=== PATIENT | male | born 1955 | race Caucasian/White ===

== ENCOUNTER 2016-05-07 09:06 | Inpatient (IN) | payer BC ==
--- NOTE | 2016-05-07 11:00 | PDGENHP ---
History and Physical - Chief Complaint preop CABG - History of Present Illness 60 yo physically active male with severe multivessel CAD transferred from [facility] for surgical revascularization. Recent retiree relocating to [place] from [place], [place]. Noted on annual physical to have an abnormal EKG (showing anteroseptal QWs with biphasic TWs in V3-V4) and referred for cardiac evaluation. Stress echo positive for anterior wall ischemia, exercise induced PVCs/NSVT, normal LV size, LVEF 55% and no significant valvular dysfx. Cardiac cath notable for severe LM disease and a subtotally occluded and collateralized LAD. Procedure complicated by catheter-induced ventricular fibrillation, requiring defibrillation. Medically stabilized and transferred for urgent CABG. No interim CP, dyspnea, presyncope, palpitations or hemodynamic instability. Is finishing up a 2 wk course of Abx for prostatitis and has not had any irritative urinary symptoms for > 72hrs. History Information - Allergies/Home Medication List Allergies/Adverse Reactions: ciprofloxacin HCl [From Cipro] Allergy (Mild, Verified 05/07/16 10:59) Other-Enter Comments Home Medications: Amlodipine Besylate [Norvasc] 5 mg PO DAILY 05/07/16 [Last Taken 05/07/16] Aspirin EC [Aspirin EC 81 mg (*)] 81 mg PO DAILY 05/07/16 [Last Taken 05/07/16] Atorvastatin Calcium [Lipitor 10 mg (*)] 10 mg PO HS 05/07/16 [Last Taken ] Finasteride [Proscar 5 MG (*)] 5 mg PO HS 05/07/16 [Last Taken 05/06/16] Fluticasone Nasal [Flonase Nasal Frostproof (RX)] 2 sprays EACHNARE DAILY 05/07/16 [ Last Taken 05/07/16] LORazepam [Ativan (*)] 0.5 mg PO BID PRN 05/07/16 [Last Taken Unknown] LORazepam [Ativan (*)] 1 mg PO HS PRN 05/07/16 [Last Taken Unknown] Nitroglycerin [Nitrostat 0.4 mg (*)] 0.4 mg SL Q5M PRN 05/07/16 [Last Taken Unknown] Sildenafil Citrate [Viagra] 100 mg PO PRN PRN 05/07/16 [Last Taken 04/07/16] Sulfamethox/Tmp 800/160 mg [Bactrim Ds] 1 tab PO BID 05/07/16 [Last Taken ] Tamsulosin HCl [Flomax 0.4 MG (*)] 0.4 mg PO BID 05/07/16 [Last Taken 05/07/16] Testosterone Cypionate 200 mg IM Q14D 05/07/16 [Last Taken 04/16/16] I have personally reviewed and updated: family history, medical history, social history, surgical history - Past Medical History arthritis (rt shoulder, easily dislocated), cataracts (bilateral, left worse than right; awaiting staged surgery), hyperlipidemia, recurrent UTI (prostatitis , currently finishing up a course of Abx for a flare; followed by urologist [facility]) Additional medical history: AGUSTIN on CPAP. BPH w LUTS of straining and nocturia x 3. Carpal tunnel syndrome, left wrist. Detached retina x 2 w scleral buckle , left eye - Surgical History Reports: hernia repair (umbilical x 2, 2012) Additional surgical history: right rotator cuff repair for recurrent dislocation. TURP April 2014; laser touch-up Nov 2014. Left carpal tunnel release 2013 - Family History Positive for: CAD ([place] age 75) - Social History Smoking Status: Former smoker (1ppd x 15yrs, quitting 1971) Alcohol Use: Other (3 drinks/week) Additional social history: (Yudith), no children;. 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 [employer] and opted to retire Review of Systems Constitutional: Reports: no symptoms EENMT: Reports: other (cataract surgery scheduled for 05/14/16) Cardiac: Reports: no symptoms Respiratory: Reports: no symptoms Gastrointestinal: Reports: no symptoms Genitourinary: Reports: other (urgency, dysuria and flank pain resolved) Muscolosketal: Reports: no symptoms Skin: Reports: no symptoms Hematologic/Lymphatic: Reports: no symptoms Physical Exam Constitutional: no apparent distress, appears nourished Eyes: anicteric sclera, other (PER) Ears, Nose, Mouth, Throat: moist mucous membranes, other (good dentition) Cardiovascular: regular rate and rhythym Peripheral Pulses: 3+: femoral (R), femoral (L), dorsalis-pedis (R), dorsalis- pedis (L) Respiratory: no respiratory distress, clear to auscultation Gastrointestinal: soft, non-tender abdomen Skin: warm, no rashes or abrasions Musculoskeletal: full muscle strength Lab Data & Imaging Review 04/20/16 Na 139, K 4.3, Cl 105, CO2 25, Glc 103 BUN 12, Cr 0.8, AST 27, ALT 35 TC 124, TG 87, HDL 35, LDL 72 Hgb A1c 5.4%, testosterone 1320 WBC 6, Hgb 16.8, HCT 48.6, Plt 159 Visualized and Interpreted Chest x-ray results: No Chest X-Ray results: no infiltrate Visualized and Interpreted imaging results: No Interpretation: cath, echo, CXR and carotid US on discs and to be downloaded into [employer]. Visualized and Interpreted EKG results: No Assessment & Plan Assessment: CAD, multiple vessel (Acute) AGSUTIN on CPAP (Chronic) Dyslipidemia Treated prostatitis Plan: Resume cardioprotective meds. NPO after MN. CABG4, tentatively scheduled for 05/07/16 @ 1pm. Likely all arterial revascularization with BIMAs and radial artery. Dr Lieberman to review imaging and consent appropriately.
[2016-05-07 13:45] LABS: HEMOGLOBIN A1C 5.5 % (4.0-6.0)
[2016-05-07] MEDS ORDERED: NITROGLYCERIN 0.4 MG BTL SL PRN (17:25)
[2016-05-07] MEDS ORDERED: HEPARIN 5,000 UNIT/0.5 ML SYR SC SCH (21:00)
[2016-05-07] MEDS ORDERED: CHLORHEXIDINE GLUC HIBICLENS 118 ML BTL TP SCH (21:00)
[2016-05-07] MEDS ORDERED: TEMAZEPAM 15 MG CAP PO PRN (21:00)
[2016-05-07] MEDS: SULFAMETHOX/TMP 800/160 MG 1 TAB PO SCH (21:04)
[2016-05-07] MEDS: MUPIROCIN 2% 22 GM OINT NS SCH (21:04)
[2016-05-07] MEDS: SENNOSIDES/DOCUSATE SODIUM TAB PO SCH (21:04)
[2016-05-07] MEDS: TAMSULOSIN HCL 0.4 MG CAP PO SCH (21:04)
[2016-05-07] MEDS: FINASTERIDE 5 MG TAB PO SCH (21:04)
[2016-05-07] MEDS: HEPARIN 5,000 UNIT/0.5 ML SYR SC SCH (21:05)
[2016-05-08 04:38] LABS: HEMATOCRIT 46.4 % (40.0-51.0); HEMOGLOBIN 15.9 g/dL (13.7-17.5); MEAN CELL HEMOGLOBIN 31.7 pg (27.9-34.1); MEAN CELL HEMOGLOBIN CONCENTR. 34.3 g/dL (32.4-36.7); MEAN CELL VOLUME 92.6 fL (81.5-99.8); RED BLOOD CELL COUNT 5.01 10^6/uL (4.40-6.38); RED CELL DISTRIBUTION WIDTH 13.1 % (11.5-15.2)
[2016-05-08 05:05] LABS: ANION GAP 10 mEq/L (8-16); CALCIUM 8.8 mg/dL (8.5-10.4); CARBON DIOXIDE 23 mEq/l (22-31); CHLORIDE 108 mEq/L (97-110); CREATININE 1.1 mg/dL (0.7-1.3); GLOMERULAR FILTRATION RATE > 60; GLUCOSE 88 mg/dL (70-100); POTASSIUM 4.4 mEq/L (3.5-5.2); SODIUM 141 mEq/L (134-144)
[2016-05-08] MEDS: HEPARIN 5,000 UNIT/0.5 ML SYR SC SCH ×3 (07:14→21:23)
[2016-05-08] MEDS ORDERED: ALBUMIN 5% 250 ML BOTTLE IV ONE (07:34)
[2016-05-08] MEDS ORDERED: PROTAMINE SULFATE 50 MG/5 ML VIAL IVP ONE (07:34)
[2016-05-08] MEDS ORDERED: CITRATE DEXTROSE SOLN 500 ML BAG ONE (07:35)
[2016-05-08] MEDS ORDERED: DOPamine/DEXTROSE/250 ML BAG IV ONE (07:35)
[2016-05-08] MEDS ORDERED: POTASSIUM Cl (KCl) 20 MEQ/50 ML BAG IV ONE (07:35)
[2016-05-08] MEDS ORDERED: AMINOCAPROIC ACID 5 GM/20 ML VIAL ONE (07:35)
[2016-05-08] MEDS ORDERED: MILRINONE/DEXTROSE/100 ML BAG IV ONE (07:35)
[2016-05-08] MEDS ORDERED: CALCIUM CHLORIDE 1 GM/10 ML INJ ONE (07:35)
[2016-05-08] MEDS ORDERED: LIDOCAINE 2% 100 MG/5 ML SYR ONE (07:35)
[2016-05-08] MEDS ORDERED: niCARdipine/NACL/200 ML BAG IV ONE (07:35)
[2016-05-08] MEDS ORDERED: NA BICARBONATE 50 MEQ/50 ML VIAL ONE (07:35)
[2016-05-08] MEDS ORDERED: ceFAZolin 1 GM VIAL ONE (07:36)
[2016-05-08] MEDS ORDERED: AMIODARONE HCL 150 MG/3 ML VIAL ONE (07:36)
[2016-05-08] MEDS ORDERED: HEPARIN 10,000 UNIT/10 ML MDV ONE (07:36)
[2016-05-08] MEDS ORDERED: methylPREDNISolone SOD SUCC 1 GM/8 ML VIAL ONE (07:36)
[2016-05-08] MEDS ORDERED: ADENOSINE 6 MG/2 ML VIAL ONE (07:36)
[2016-05-08] MEDS ORDERED: MAGNESIUM SULFATE 1 GM/2 ML VIAL ONE (07:36)
--- NOTE | 2016-05-08 08:56 | CPEKG ---
Heart Rate: 57 RR Interval: 1053 P-R Interval: 180 QRSD Interval: 92 QT Interval: 432 QTC Interval: 421 P Grant: 55 QRS Grant: -44 T Wave Grant: 82 EKG Severity - ABNORMAL ECG - EKG Impression: SINUS RHYTHM EKG Impression: LEFT ANTERIOR FASCICULAR BLOCK EKG Impression: PROBABLE ANTEROSEPTAL INFARCT, OLD EKG Impression: BORDERLINE T WAVE ABNORMALITIES Electronically Signed By: Myron Young 09-May-2016 18:34:01
[2016-05-08] MEDS: MUPIROCIN 2% 22 GM OINT NS SCH ×2 (10:10→19:48)
[2016-05-08] MEDS: SENNOSIDES/DOCUSATE SODIUM TAB PO SCH ×2 (10:11→21:09)
[2016-05-08] MEDS: SULFAMETHOX/TMP 800/160 MG 1 TAB PO SCH (10:11)
[2016-05-08] MEDS: TAMSULOSIN HCL 0.4 MG CAP PO SCH (10:11)
[2016-05-08] MEDS ORDERED: NS 1,000 ML IV ONE (11:00)
[2016-05-08] MEDS ORDERED: LIDOCAINE 1% 5 ML SDV ID PRN (11:00)
[2016-05-08] MEDS ORDERED: PHENYLEPHRINE HCL 50 MG in NS 250 ML IV ONE (11:00)
[2016-05-08] MEDS ORDERED: VERAPAMIL 5 MG, NITROGLYCERIN 2.5 MG, HEPARIN 500 UNIT, SODIUM BICARBONATE 0.2 MEQ in L... MISC ONE (11:00)
[2016-05-08] MEDS ORDERED: SODIUM BICARBONATE 20 MEQ, LIDOCAINE 1% 10 ML in NORMOSOL-R 1,000 ML MISC ONE (11:00)
[2016-05-08] MEDS ORDERED: AMINOCAPROIC ACID 5 GM/20 ML VIAL IV ONE (11:00)
[2016-05-08] MEDS ORDERED: MANNITOL 25% 12.5 GM/50 ML VIAL IV ONE (11:00)
[2016-05-08] MEDS ORDERED: INSULIN REGULAR HUMAN 100 UNIT in NS 100 ML IV ONE (11:00)
[2016-05-08] MEDS ORDERED: ceFAZolin 2 GM/DEXTROSE 100 ML IV ONE (11:00)
[2016-05-08] MEDS ORDERED: niCARdipine/NACL 200 ML IV SCH (11:00)
[2016-05-08] MEDS ORDERED: NOREPINEPHRINE BITARTRATE 16 MG in NS 250 ML IV ONE (11:00)
[2016-05-08] MEDS ORDERED: CITRATE DEXTROSE SOLN 500 ML BAG MISC ONE (11:00)
[2016-05-08] MEDS ORDERED: PAPAVERINE HCL 60 MG/2 ML SDV ONE (12:08)
[2016-05-08] MEDS ORDERED: SKIN ADHESIVE (DERMABOND) 1 EACH TP ONE (12:08)
[2016-05-08] MEDS ORDERED: VERAPAMIL 5 MG/2 ML VIAL ONE (12:08)
[2016-05-08] MEDS ORDERED: PROPOFOL/EMULSION 500 MG/50 ML BOTTLE IV ONE (12:11)
[2016-05-08] MEDS ORDERED: MIDAZOLAM 2 MG/2 ML VIAL ONE ×2 (12:54→12:59)
[2016-05-08] MEDS ORDERED: fentaNYL 250 MCG/5 ML INJ ONE ×2 (13:00)
[2016-05-08] MEDS ORDERED: MINERAL OIL 10 ML VIAL TP ONE (15:58)
[2016-05-08] MEDS ORDERED: MAGNESIUM SULF 2 GM/WATER 50 ML BAG IV ONE (17:07)
[2016-05-08] MEDS ORDERED: HYDROmorphONE/DILAUDID 2 MG/ML INJ ONE (17:42)
[2016-05-08] MEDS ORDERED: ALBUMIN 5% 250 ML IV PRN (18:00)
[2016-05-08] MEDS ORDERED: LACTULOSE 20 GM/30 ML UDCUP PO PRN (18:00)
[2016-05-08] MEDS ORDERED: SODIUM CL NASAL 45 ML BTL EACHNARE PRN (18:00)
[2016-05-08] MEDS ORDERED: D50W 25 GM/50 ML SYR IVP PRN (18:00)
[2016-05-08] MEDS ORDERED: PANTOPRAZOLE SODIUM 40 MG in NS 100 ML IV ONE (18:00)
[2016-05-08] MEDS ORDERED: BISACODYL 10 MG SUPP PR PRN (18:00)
[2016-05-08] MEDS ORDERED: POTASSIUM Cl (KCl) 50 ML IV PRN (18:00)
[2016-05-08] MEDS ORDERED: NS 1,000 ML IV SCH (18:00)
[2016-05-08] MEDS ORDERED: MEPERIDINE 25 MG/ML SYR IVP PRN (18:00)
[2016-05-08] MEDS ORDERED: CEPACOL LOZENGE PO PRN (18:00)
[2016-05-08] MEDS ORDERED: METOCLOPRAMIDE 10 MG/2 ML VIAL IVP PRN (18:00)
[2016-05-08] MEDS ORDERED: MAGNESIUM HYDROXIDE 30 ML UDCUP PO PRN (18:00)
[2016-05-08] MEDS ORDERED: POLYETHYLENE GLYCOL 3350 17 GM PKT PO PRN (18:00)
[2016-05-08] MEDS ORDERED: MAGNESIUM SULF 2 GM/WATER 50 ML IV ONE (18:00)
[2016-05-08] MEDS ORDERED: ONDANSETRON 4 MG/2 ML VIAL IVP PRN (18:00)
[2016-05-08] MEDS ORDERED: ACETAMINOPHEN 650 MG SUPP PR PRN (18:00)
[2016-05-08] MEDS ORDERED: INSULIN REGULAR HUMAN 100 UNIT in NS 100 ML IV SCH (18:00)
--- NOTE | 2016-05-08 18:10 | POSTOPPROG ---
Post Op Note Date of Operation: 05/08/16 Surgeon: Myron Lieberman Websphere Message Broker Developer: Troy Anesthesiologist: Fletcher Anesthesia: GET(General Endotracheal) Pre-op Diagnosis: ASHD Procedure: CAB 4 Morrison-Lad,Kimberly-Dg, [id number], Lig ROGELIO, EVH Inf/Abcess present in the surg proc area at time of surgery?: No EBL: 50-100 Drains: Other (3 blakes)
[2016-05-08] MEDS ORDERED: PROPOFOL 200 MG/20 ML VIAL ONE (18:18)
[2016-05-08] MEDS ORDERED: fentaNYL 50 MCG PATCH TD SCH (18:30)
--- NOTE | 2016-05-08 18:45 | GOP ---
[f rep st] OPERATIVE REPORT DATE OF OPERATION: 05/08/2016 SURGEON: Myron Lieberman DO DIRECTOR OF EMERGENCY NURSING: Miko Simmons PA-C ANESTHESIOLOGIST: Esdras Bynum MD. PREOPERATIVE DIAGNOSIS: Arteriosclerotic heart disease with ventricular fibrillation during cathete rization. POSTOPERATIVE DIAGNOSIS: Arteriosclerotic heart disease with ventricular fibrillation during cathet erization. PROCEDURE PERFORMED: 1. Urgent coronary bypass grafting x4 of the left internal mammary artery to the left anterior desc ending, right internal mammary artery to the diagonal, saphenous vein graft to the first obtuse do inal sequential to second obtuse marginal. 2. Endoscopic vein harvest performed by AIME Alejandro, who first assisted throughout the procedur e and also AtriClip to the left atrial appendage with exclusion. FINDINGS: Patient was consented for surgery and brought to the operating room, intubated, and monit oring lines were placed. He was prepped and draped in sterile classical manner. Sternotomy was per formed. Both mammaries were harvested, which were excellent vessels on good pedicles with good flow . We then heparinized the patient. Simultaneously vein was harvested from the left thigh by AIME Obrien, who harvested the vein and first assisted throughout the procedure. Patient was heparini zed and cannulated in standard fashion, including retrograde cardioplegia because of the totally occ luded LAD system. Heart was arrested with antegrade and retrograde cardioplegia, topical hypothermi a, and systemic cooling. All distal's and proximal's were performed with a cross-clamp on. Initial ly, a sequential graft to the 2nd OM and 1st OM was performed with a good quality 4 mm vein. We the n brought off the ascending aorta with the cross-clamp on. We then placed a 35 mm AtriClip across t he base of the left atrial appendage, which was free of thrombus on preoperative echo. We then proc eeded with AtriClip as stated, and then proceeded on with bringing the right internal mammary artery through the transverse sinus and grafting it to a large diagonal/first ramus branch. This was tack ed to the epicardium. We then began rewarming while the left internal mammary artery was grafted to a smaller-sized LAD in the distal 3rd. It was tacked to the epicardium. Cross-clamp was removed w ith suction on the ascending aortic vent. Spontaneous cardiac activity was noted to resume. All di stal vessels were adequate caliber and good quality. The patient was easily weaned from bypass. Th e heparin was reversed with protamine. The cannula was removed and oversewn. Two ventricular pacin g wires and 2 atrial pacing wires were placed. Thymic fat and pericardium were closed. Chest was c losed in standard fashion. The patient was returned to ICU in stable condition. DESCRIPTION OF PROCEDURE: /[id number]/MODL
[2016-05-08] MEDS ORDERED: KETOROLAC 30 MG/1 ML SDV IVP ONE (19:00)
[2016-05-08 19:15] LABS: BASE EXCESS -5.1 mEq/L (-2.5-2.5); BICARBONATE 20 mEq/L (22-26); MEASURED OXYGEN SATURATION 95 % (92-95); PCO2 40 mmHg (34-38); PO2 86 mmHg (65-75); TCO2 22 mEq/L (23-27)
[2016-05-08 19:17] LABS: O2 CONCENTRATIION 99 % (0-100); P/F RATIO 87 RATIO
[2016-05-08] MEDS: fentaNYL 100 MCG/2 ML INJ IVP PRN ×2 (19:33→22:13)
[2016-05-08] MEDS: ceFAZolin 2 GM/DEXTROSE 100 ML IV SCH (19:41)
[2016-05-09] MEDS: fentaNYL 100 MCG/2 ML INJ IVP PRN ×5 (00:06→09:30)
[2016-05-09] MEDS: ceFAZolin 2 GM/DEXTROSE 100 ML IV SCH ×3 (04:23→22:00)
[2016-05-09 04:25] LABS: % IMMATURE GRANULYOCYTES 0.4 % (0.0-1.1); ABSOLUTE IMMATURE GRANULOCYTES 0.04 10^3/uL (0.00-0.10); ADD DIFF? NO; ADD MORPH? NO; ADD SCAN? NO; ATYPICAL LYMPHOCYTE FLAG 0 (0-99); FRAGMENT RBC FLAG 0 (0-99); HEMATOCRIT 42.2 % (40.0-51.0); HEMOGLOBIN 14.7 g/dL (13.7-17.5); LEFT SHIFT FLG 0 (0-99); LIPEMIA HEMOLYSIS FLAG 90 (0-99); MEAN CELL HEMOGLOBIN 31.8 pg (27.9-34.1); MEAN CELL HEMOGLOBIN CONCENTR. 34.8 g/dL (32.4-36.7); MEAN CELL VOLUME 91.3 fL (81.5-99.8); MEAN PLATELET VOLUME 10.7 fL (8.7-11.7); PLATELET CLUMPS FLAG 0 (0-99); PLATELET COUNT 130 10^3/uL (150-400); RED BLOOD CELL COUNT 4.62 10^6/uL (4.40-6.38); RED CELL DISTRIBUTION WIDTH 13.3 % (11.5-15.2)
[2016-05-09 04:37] LABS: ANION GAP 6 mEq/L (8-16); CALCIUM 7.3 mg/dL (8.5-10.4); CARBON DIOXIDE 22 mEq/l (22-31); CHLORIDE 112 mEq/L (97-110); CREATININE 0.8 mg/dL (0.7-1.3); GLOMERULAR FILTRATION RATE > 60; GLUCOSE 106 mg/dL (70-100); POTASSIUM 4.5 mEq/L (3.5-5.2); SODIUM 140 mEq/L (134-144)
[2016-05-09] MEDS: HEPARIN 5,000 UNIT/0.5 ML SYR SC SCH ×3 (06:01→20:32)
[2016-05-09] MEDS: SENNOSIDES/DOCUSATE SODIUM TAB PO SCH ×2 (08:03→20:30)
[2016-05-09] MEDS: PANTOPRAZOLE SODIUM 40 MG TAB PO SCH (08:03)
[2016-05-09] MEDS: ASPIRIN EC 81 MG TAB PO SCH (08:03)
[2016-05-09] MEDS: MUPIROCIN 2% 22 GM OINT NS SCH ×2 (08:07→22:24)
--- NOTE | 2016-05-09 08:47 | SOAPPROG ---
SOAP Progress Note Assessment/Plan: Assessment: POD#1 Urgent CABG x 4 (SANTANA-LAD, RICH-D1, SV sequentially OM1-OM2), prophylactic AtriClip LLAA, EVH LLE Severe CAD w preserved LV systolic fx - Intraop evidence of anterolateral wall scarring. Fully revascularized with 2 arterial grafts. Use of left radial artery abandoned d/t abnormal Cooper's test by plethysmography. Stable early postop course. Extubated in the OR. No vasoactive support, blood/blood product transfusions, tachyarrhythmias or significant volume overload. Apaced overnight for optimized hemodynamics. Secondary prevention with ASA, statin when eating well, and BB as allowed by heart rate and BP. AGUSTIN on CPAP - Stable. Home appliance in use. BPH with LUTS - Intraop placement of Coude cath. To be monitored closely for retention once cath out. Flomax and Proscar resumed. Recent prostatitis - Completing 10 of 14 day course Bactrim preop. Asx within 1 wk. Postop coverage with Ancef alone unless recurrent sx. Plan: Routine POD#1 orders re lines, drains, mobility and orals. Duragesic patch until pleural tubes out. Tx to PCU. 05/09/16 08:46 Subjective: Doing ok. Didn't sleep much. Taken aback by degree of pain. OOB without nausea or dizziness. Thirsty. Objective: Vital Signs Temp Pulse Resp BP Pulse Ox 36.6 C 74 18 108/59 L 97 05/09/16 07:00 05/09/16 07:33 05/09/16 07:00 05/09/16 07:33 05/09/16 07:00 Laboratory Results 05/09/16 04:10 05/09/16 04:10 05/08/16 05/09/16 05/10/16 05:59 05:59 05:59 Intake Total 1100 753.1 Output Total 1821 65 Balance 1100 -1067.9 -65 Apaced 90 overnight for MAPs > 70. Preop HR 50s on CCB. SR 70s held earlier this am and pacing d/cd. Excellent autodiuresis with stable renal fx. Modest CTOP. Minimal drop in H/H. CXR-> hypoventilation with basilar atelectasis. No PTX or pulm vasc congestion. Physical Exam - Physical Exam General Appearance: alert, mild distress (when asked to cough) Respiratory: crackles (bases), other (blakes x 3 y-d to pleurovac, serosang drainage, no tidal, no AL) Cardiac/Chest: regular rate, rhythm, other (Sternum grossly stable. Sternotomy CDI. A&V wires intact) Abdomen: normal bowel sounds, non-tender, soft Skin: warm/dry Extremities: swelling (trace), other (LLE venotomy CDI. Venot tract soft, flat) ICD10 Worksheet Patient Problems: Problems Problem Status Onset CAD, multiple vessel Acute S/P CABG x 4 Acute BPH with obstruction/lower urinary tract symptoms Chronic AGUSTIN on CPAP Chronic
[2016-05-09] MEDS ORDERED: traMADol 50 MG TAB PO PRN (10:09)
[2016-05-09] MEDS: TAMSULOSIN HCL 0.4 MG CAP PO SCH ×2 (13:14→20:30)
[2016-05-09] MEDS: oxyCODONE IR 5 MG TAB PO PRN ×3 (13:28→20:42)
[2016-05-09] MEDS ORDERED: FUROSEMIDE 20 MG/2 ML VIAL ONE (15:56)
[2016-05-09] MEDS ORDERED: FUROSEMIDE 20 MG/2 ML VIAL IVP ONE (15:59)
[2016-05-09] MEDS ORDERED: LIDOCAINE 2% JELLY 5 ML TUBE ONE (17:10)
[2016-05-09] MEDS ORDERED: LIDOCAINE 2% JELLY 20 ML (UROJECT) UR ONE (17:15)
[2016-05-09] MEDS: LORazepam 1 MG TAB PO PRN (20:30)
[2016-05-09] MEDS: METOPROLOL TARTRATE 25 MG TAB PO SCH (20:30)
[2016-05-09] MEDS: FINASTERIDE 5 MG TAB PO SCH (21:59)
[2016-05-10] MEDS: oxyCODONE IR 5 MG TAB PO PRN ×4 (01:06→20:55)
[2016-05-10] MEDS: ceFAZolin 2 GM/DEXTROSE 100 ML IV SCH (05:00)
[2016-05-10 05:15] LABS: % IMMATURE GRANULYOCYTES 0.4 % (0.0-1.1); ABSOLUTE IMMATURE GRANULOCYTES 0.05 10^3/uL (0.00-0.10); ADD DIFF? NO; ADD MORPH? NO; ADD SCAN? NO; ATYPICAL LYMPHOCYTE FLAG 0 (0-99); FRAGMENT RBC FLAG 0 (0-99); HEMATOCRIT 38.4 % (40.0-51.0); HEMOGLOBIN 13.1 g/dL (13.7-17.5); LEFT SHIFT FLG 0 (0-99); LIPEMIA HEMOLYSIS FLAG 90 (0-99); MEAN CELL HEMOGLOBIN 32.3 pg (27.9-34.1); MEAN CELL HEMOGLOBIN CONCENTR. 34.1 g/dL (32.4-36.7); MEAN CELL VOLUME 94.8 fL (81.5-99.8); MEAN PLATELET VOLUME 11.1 fL (8.7-11.7); PLATELET CLUMPS FLAG 10 (0-99); PLATELET COUNT 101 10^3/uL (150-400); RED BLOOD CELL COUNT 4.05 10^6/uL (4.40-6.38); RED CELL DISTRIBUTION WIDTH 13.4 % (11.5-15.2)
[2016-05-10] MEDS: HEPARIN 5,000 UNIT/0.5 ML SYR SC SCH ×3 (05:22→20:43)
[2016-05-10 05:34] LABS: ANION GAP 8 mEq/L (8-16); CALCIUM 7.6 mg/dL (8.5-10.4); CARBON DIOXIDE 24 mEq/l (22-31); CHLORIDE 102 mEq/L (97-110); CREATININE 0.9 mg/dL (0.7-1.3); GLOMERULAR FILTRATION RATE > 60; GLUCOSE 129 mg/dL (70-100); POTASSIUM 4.5 mEq/L (3.5-5.2); SODIUM 134 mEq/L (134-144)
--- NOTE | 2016-05-10 08:38 | SOAPPROG ---
SOAP Progress Note Assessment/Plan: POD#2 Urgent CABG x 4 (SANTANA-LAD, RICH-D1, SV sequentially OM1-OM2), prophylactic AtriClip LLAA, EVH LLE Severe CAD w preserved LV systolic fx - Intraop evidence of anterolateral wall scarring. Fully revascularized with 2 arterial grafts. Use of left radial artery abandoned d/t abnormal Cooper's test by plethysmography. Stable early postop course. Extubated in the OR. No vasoactive support, blood/blood product transfusions, tachyarrhythmias or significant volume overload. Apaced overnight for optimized hemodynamics. Secondary prevention with ASA, statin, and BB. Remaining chest tube to be removed today. Awaiting transfer to PCU pending bed. AGUSTIN on CPAP - Stable. Home appliance in use. BPH with LUTS - Intraop placement of Coude cath. Flomax and Proscar resumed. Coude placed 05/09 for urinary retention and removed this morning. Monitor for voiding issues. Recent prostatitis - Completing 10 of 14 day course Bactrim preop. Asx within 1 wk. Postop coverage with Ancef alone unless recurrent sx. Subjective: c/o pressure at chest tube site. Denies CP/SOB. Objective: Vital Signs Temp Pulse Resp BP Pulse Ox 37.0 C 68 20 119/54 L 96 05/09/16 13:00 05/10/16 04:00 05/10/16 04:00 05/10/16 04:00 05/10/16 04:00 Laboratory Results 05/10/16 05:00 05/10/16 05:00 05/09/16 05/10/16 05/11/16 05:59 05:59 05:59 Intake Total 753.1 2640 Output Total 1821 1715 Balance -1067.9 925 Physical Exam - Physical Exam General Appearance: WD/WN, alert, no apparent distress EENT: No scleral icterus (R), No scleral icterus (L) Neck: normal inspection Respiratory: No respiratory distress Cardiac/Chest: regular rate, rhythm Abdomen: non-tender, soft, No distended Skin: normal color, warm/dry Extremities: No pedal edema Neuro/Psych: no motor/sensory deficits, alert, normal mood/affect, oriented x 3 ICD10 Worksheet Patient Problems: Problems Problem Status Onset CAD, multiple vessel Acute S/P CABG x 4 Acute BPH with obstruction/lower urinary tract symptoms Chronic AGUSTIN on CPAP Chronic
[2016-05-10] MEDS: SENNOSIDES/DOCUSATE SODIUM TAB PO SCH ×2 (09:55→20:48)
[2016-05-10] MEDS: PANTOPRAZOLE SODIUM 40 MG TAB PO SCH (09:55)
[2016-05-10] MEDS: FLUTICASONE NASAL 120 SPRAYS/16 GM MDI EACHNARE SCH (09:56)
[2016-05-10] MEDS: TAMSULOSIN HCL 0.4 MG CAP PO SCH ×2 (09:56→20:48)
[2016-05-10] MEDS: METOPROLOL TARTRATE 25 MG TAB PO SCH ×2 (09:56→20:47)
[2016-05-10] MEDS: ASPIRIN EC 81 MG TAB PO SCH (09:56)
[2016-05-10] MEDS ORDERED: LIDOCAINE 2% JELLY 20 ML (UROJECT) ONE (13:03)
[2016-05-10] MEDS: FINASTERIDE 5 MG TAB PO SCH (20:48)
[2016-05-10] MEDS: ATORVASTATIN CALCIUM 10 MG TAB PO SCH (20:48)
[2016-05-10] MEDS: LORazepam 1 MG TAB PO PRN (22:22)
[2016-05-11] MEDS: oxyCODONE IR 5 MG TAB PO PRN (04:42)
[2016-05-11] MEDS: HEPARIN 5,000 UNIT/0.5 ML SYR SC SCH ×3 (04:43→21:52)
[2016-05-11 06:19] LABS: ANION GAP 6 mEq/L (8-16); CALCIUM 7.7 mg/dL (8.5-10.4); CARBON DIOXIDE 28 mEq/l (22-31); CHLORIDE 98 mEq/L (97-110); CREATININE 0.8 mg/dL (0.7-1.3); GLOMERULAR FILTRATION RATE > 60; GLUCOSE 116 mg/dL (70-100); POTASSIUM 4.1 mEq/L (3.5-5.2); SODIUM 132 mEq/L (134-144)
--- NOTE | 2016-05-11 08:21 | SOAPPROG ---
SOAP Progress Note Assessment/Plan: Assessment: POD#3 Urgent CABG x 4 (SANTANA-LAD, RICH-D1, SV sequentially OM1-OM2), prophylactic AtriClip LLAA, EVH LLE Severe CAD w preserved LV systolic fx - Intraop evidence of anterolateral wall scarring. Fully revascularized with 2 arterial grafts. Use of left radial artery abandoned d/t abnormal Cooper's test by plethysmography. Extubated in the OR. Hemodynamically stable postop course. Tubes and wires out. Secondary prevention with ASA, statin, and BB as tolerated. AGUSTIN on CPAP - Stable. Home appliance in use. BPH with LUTS - Significant postop urinary retention despite resumption of home meds and indwelling kelly replaced. Urology consulted and to see today. Recent prostatitis - Completing 10 of 14 day course Bactrim preop. Asx within 1 wk. Postop coverage with Ancef. Plan: Cont metoprolol 12.5 mg BID. Cont inc activity and pulm toilet. Wean O2. Intensify bowel regimen. Await urology input. Dispo - Anticipate home tomorrow. 05/11/16 08:17 Subjective: Doing better. Improving mobility, stamina, and appetite. Satisfactory analgesia. Main c/o urethral and bladder "irritation". Reassuring that urine remains clear as cloudy +/- heme with prior prostatitis. Awaiting BM. Objective: Vital Signs Temp Pulse Resp BP Pulse Ox 36.4 C 88 24 H 125/72 H 94 05/11/16 08:00 05/11/16 08:00 05/11/16 08:00 05/11/16 08:00 05/11/16 08:00 Laboratory Results 05/10/16 05:00 05/11/16 05:00 05/10/16 05/11/16 05/12/16 05:59 05:59 05:59 Intake Total 2640 1440 200 Output Total 1715 1075 Balance 925 365 200 HR and BP controlled. No anthony or tachycardia. Minimal suppl O2. Adequate autodiuresis w stable renal fx. Physical Exam - Physical Exam General Appearance: alert, no apparent distress Respiratory: lungs clear, other (Improved IS) Cardiac/Chest: regular rate, rhythm, other (Sternum grossly stable. Sternotomy CDI) Abdomen: non-tender, soft Male Genitalia: other (kelly bag with clear yellow urine) Skin: warm/dry Extremities: other (No visible edema. LLE venotomy CDI) ICD10 Worksheet Patient Problems: Problems Problem Status Onset CAD, multiple vessel Acute S/P CABG x 4 Acute BPH with obstruction/lower urinary tract symptoms Chronic AGUSTIN on CPAP Chronic
[2016-05-11] MEDS ORDERED: OXYCODONE/APAP 5/325 TAB PO PRN (09:00)
[2016-05-11] MEDS: TAMSULOSIN HCL 0.4 MG CAP PO SCH ×2 (09:22→21:54)
[2016-05-11] MEDS: METOPROLOL TARTRATE 25 MG TAB PO SCH ×2 (09:22→22:05)
[2016-05-11] MEDS: PANTOPRAZOLE SODIUM 40 MG TAB PO SCH (09:22)
[2016-05-11] MEDS: SENNOSIDES/DOCUSATE SODIUM TAB PO SCH (09:22)
[2016-05-11] MEDS: ASPIRIN EC 81 MG TAB PO SCH (09:22)
[2016-05-11] MEDS: FLUTICASONE NASAL 120 SPRAYS/16 GM MDI EACHNARE SCH (09:23)
[2016-05-11] MEDS: ACETAMINOPHEN 325 MG TAB PO PRN (13:30)
[2016-05-11] MEDS: OXYCODONE/APAP 5/325 TAB PO PRN (17:47)
[2016-05-11] MEDS ORDERED: HYOSCYAMINE SULFATE 0.125 MG TAB PO PRN (18:24)
[2016-05-11] MEDS ORDERED: SENNOSIDES/DOCUSATE SODIUM TAB PO PRN (19:00)
[2016-05-11] MEDS: ATORVASTATIN CALCIUM 10 MG TAB PO SCH (21:53)
[2016-05-11] MEDS: LORazepam 1 MG TAB PO PRN (21:53)
[2016-05-11] MEDS: FINASTERIDE 5 MG TAB PO SCH (21:54)
--- NOTE | 2016-05-12 02:22 | SOAPPROG ---
[facility] Progress Note Assessment/Plan: Assessment: Postop urinary retention with presumed h/o BPH and urinary obstruction based on pt's chronic use of finasteride and tamsulosin. Chart reviewed, pt. not seen. Plan: 1. Per my [id number] conversation with Dr. Lieberman, I recommended pt. be discharged with indwelling Connolly catheter then FU w/ [facility] or his regular urologist in [place] within [address] Lieberman voiced approval with this management plan. 2. Continue finasteride and tamsulosin upon discharge. Objective: Vital Signs Temp Pulse Resp BP Pulse Ox 36.8 C 79 18 118/57 L 98 05/11/16 23:49 05/11/16 23:49 05/11/16 23:49 05/11/16 23:49 05/11/16 23:49 Laboratory Results 05/10/16 05:00 05/11/16 05:00 05/10/16 05/11/16 05/12/16 05:59 05:59 05:59 Intake Total 2640 1440 790 Output Total 1715 1075 425 Balance 925 365 365 ICD10 Worksheet Patient Problems: Problems Problem Status Onset CAD, multiple vessel Acute Postoperative urinary retention Acute S/P CABG x 4 Acute BPH with obstruction/lower urinary tract symptoms Chronic AGUSTIN on CPAP Chronic
[2016-05-12] MEDS: HEPARIN 5,000 UNIT/0.5 ML SYR SC SCH (05:28)
[2016-05-12] MEDS: OXYCODONE/APAP 5/325 TAB PO PRN (05:34)
[2016-05-12 05:44] LABS: HEMATOCRIT 30.6 % (40.0-51.0); HEMOGLOBIN 10.5 g/dL (13.7-17.5); MEAN CELL HEMOGLOBIN CONCENTR. 34.3 g/dL (32.4-36.7); MEAN CELL VOLUME 93.3 fL (81.5-99.8); RED BLOOD CELL COUNT 3.28 10^6/uL (4.40-6.38); RED CELL DISTRIBUTION WIDTH 12.8 % (11.5-15.2)
[2016-05-12 07:23] VITALS: TEMP 97.9
--- NOTE | 2016-05-12 08:22 | SOAPPROG ---
SOAP Progress Note Assessment/Plan: Assessment: POD#4 Urgent CABG x 4 (SANTANA-LAD, RICH-D1, SV sequentially OM1-OM2), prophylactic AtriClip LLAA, EVH LLE Severe CAD w preserved LV systolic fx - Intraop evidence of anterolateral wall scarring. Fully revascularized with 2 arterial grafts. Use of left radial artery abandoned d/t abnormal Cooper's test by plethysmography. Extubated in the OR. Hemodynamically stable postop course. Tubes and wires out. Secondary prevention with ASA, statin, and BB as tolerated. AGUSTIN on CPAP - Stable. Home appliance in use. BPH with LUTS - Significant postop urinary retention despite resumption of home meds. Indwelling kelly replaced. Urology consulted and rec voiding trial. Option given to do here vs at urologist's within 1 week and pt opted for here. Trial in progress. Recent prostatitis - Completing 10 of 14 day course Bactrim preop. Asx within 1 wk. Postop coverage with Ancef. Plan: Kelly removed. Self cath instructions to be provided. Ok for discharge later today. Instructions re meds, activity, wound care, and followup to be reviewed in presence of . 05/11/16 08:17 Subjective: Feels "fantastic", like "a corner was turned". Slept well. Good appetite. Bowels settled. Wants cath out, shower, and home. Objective: Vital Signs Temp Pulse Resp BP Pulse Ox 36.6 C 83 19 116/57 L 94 05/12/16 07:20 05/12/16 07:20 05/12/16 07:20 05/12/16 07:20 05/12/16 07:20 Laboratory Results 05/12/16 05:30 05/11/16 05:00 05/11/16 05/12/16 05/13/16 05:59 05:59 05:59 Intake Total 1440 1190 Output Total 1075 2025 Balance 365 -835 Cardioresp status stable. Metop inc to 25 BID for 10 beat burst of AF yest afternoon while active. Dose well tolerated. No further tachycardia. CXR-> decreased basilar atelectasis, no pulm vasc congestion, tiny residual left pl eff. Cont to autodiurese well. No within 1 kg of baseline wt. Labs ok. Physical Exam - Physical Exam General Appearance: alert, no apparent distress Respiratory: lungs clear Cardiac/Chest: regular rate, rhythm, other (Sternum grossly stable. Sternotomy and CT sites ok.) Abdomen: non-tender, soft Skin: warm/dry Extremities: other (No visible edema. LLE venot CDI.) ICD10 Worksheet Patient Problems: Problems Problem Status Onset CAD, multiple vessel Acute Postoperative urinary retention Acute S/P CABG x 4 Acute BPH with obstruction/lower urinary tract symptoms Chronic AGUSTIN on CPAP Chronic
[2016-05-12] MEDS: METOPROLOL TARTRATE 25 MG TAB PO SCH (09:30)
[2016-05-12] MEDS: PANTOPRAZOLE SODIUM 40 MG TAB PO SCH (09:31)
[2016-05-12] MEDS: FLUTICASONE NASAL 120 SPRAYS/16 GM MDI EACHNARE SCH (09:32)
[2016-05-12] MEDS: TAMSULOSIN HCL 0.4 MG CAP PO SCH (09:32)
[2016-05-12] MEDS: ASPIRIN EC 81 MG TAB PO SCH (09:32)
--- NOTE | 2016-05-12 10:04 | SOAPPROG ---
SOAP Progress Note Assessment/Plan: Assessment:Urinary retention Plan: 05/12/16 09:51 Catheter has been removed. If patient is unable to void, he prefers to learn CIC until bladder function has returned. He will f/u as needed. Subjective: Pt feels well this morning. No bladder sensation as of yet. Objective: Vital Signs Temp Pulse Resp BP Pulse Ox 36.6 C 83 19 116/57 L 94 05/12/16 07:20 05/12/16 07:20 05/12/16 07:20 05/12/16 07:20 05/12/16 07:20 Laboratory Results 05/12/16 05:30 05/11/16 05:00 05/11/16 05/12/16 05/13/16 05:59 05:59 05:59 Intake Total 1440 1190 Output Total 1075 2025 Balance 365 -835 Physical Exam - Physical Exam General Appearance: WD/WN, alert, no apparent distress Abdomen: normal bowel sounds, non-tender, soft ICD10 Worksheet Patient Problems: Problems Problem Status Onset CAD, multiple vessel Acute Postoperative urinary retention Acute S/P CABG x 4 Acute BPH with obstruction/lower urinary tract symptoms Chronic AGUSTIN on CPAP Chronic
--- NOTE | 2016-05-12 11:01 | GCON ---
[f rep st] CONSULTATION REFERRING PHYSICIAN: Myron Lieberman DO REASON FOR CONSULTATION: Urinary retention. HISTORY OF PRESENT ILLNESS: The patient is a 60-year-old male, who was admitted for an urgent coron manuel artery bypass graft. Postoperatively he has been unable to void, despite several voiding trials . A Connolly catheter was replaced, and the patient would like to discuss options. His past medical history is significant for longstanding lower urinary tract symptoms. He has had a transurethral resection of the prostate, as well as a GreenLight photo vaporization of the prostate . He continues to take finasteride and tamsulosin preoperatively, but was not having any acute prob lems. He was being treated for possible prostatitis on admission. The remainder of his past medical history, surgical history, etceteras, is reviewed. PHYSICAL EXAMINATION: GENERAL: The patient is alert and oriented, and in no acute distress. ABDOM EN: Soft. Connolly catheter is in place, draining clear, yellow urine. He has no significant periphe ral edema. IMPRESSION: Longstanding lower urinary tract symptoms with postoperative urinary retention. PLAN: With the patient I discussed several options, including a voiding trial as an outpatient in 3 -4 days after he has been ambulating, versus instruction in clean intermittent catheterization. The benefits and risks of each option were discussed. He is pretty miserable with the indwelling ruben ter, and would like another voiding trial in the morning, and if he is unable to void would like to learn intermittent catheterization. I provided a prescription for lidocaine jelly, as well as red r ubber catheters, and we will have him follow with either Dr. Carvalho or myself if he is continuing to have problems. /[id number]/MODL
[2016-05-12 11:06] VITALS: BP 109/59; PULSE 77; RESP 20; O2SAT 89
[2016-05-12] MEDS: ACETAMINOPHEN 325 MG TAB PO PRN (13:13)
--- NOTE | 2016-05-12 16:00 | PDDCSUM ---
Discharge Summary Discharge Summary: DATE OF ADMISSION: 05/07/16 DATE OF DISCHARGE: 05/12/16 DISPOSITION: Home, self-care PRINCIPAL ADMISSION DIAGNOSIS: Severe coronary artery disease with left main stenosis PRINCIPAL DISCHARGE DIAGNOSES: 1. Status post coronary artery bypass grafting x 4. 2. Status post prophylactic AtriClip ligation of the left atrial appendage. 3. Postoperative urinary retention. HISTORY OF PRESENT ILLNESS: 60 yo dyslipidemic male with an abnormal EKG on annual physical found by cardiac evaluation at [facility] to have severe left main and LAD disease. No associated LVSD, valvular dysfx, or obstructive carotid disease. Transferred to [facility] for urgent CABG after catheter induced ventricular fibrillation requiring defibrillation. No interim chest pain or hemodynamic instability. PERTINENT PAST MEDICAL HISTORY: Recurrent prostatitis - s/p TURP and laser vaporization in 2014. Recent flare clinically responsive to Bactrim. Admitted for cardiac issues prior to completing full 14 day course. BPH with LUTS of straining and nocturia x 3. Followed by urologist in [place] ( [place]). Cystoscopy planned. AGUSTIN on CPAP. Dyslipidemia - Preop lipid panel: TC 124, TG 87, HDL 35, LDL 72. Detached retina and scleral buckle, left eye. Low testosterone, supplemented. MEDICATIONS ON ADMISSION: Bactrim DS 1 tab BID, ASA 81 mg daily, Norvasc 5 mg daily, Lipitor 10 mg nightly , Ativan 0.5 mg BID prn anxiety and 1 mg hs prn insomnia, Flomax 0.4 mg BID, Proscar 5 mg nightly, Testosterone cypionate 200 mg IM q14 days, Viagra 100 mg prn intercourse, Nitrostat 0.4 mg SL q 5 min prn chest pain. 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 Takedown bilateral internal mammary arteries. Endoscopic vein harvest left thigh. Prophylactic AtriClip ligation of the left atrial appendage. Placement of a 12 Fr Coude catheter. ABBREVIATED HOSPITAL COURSE: Taken to the OR on hospital day #2 where 4 vessel bypass completed with 2 arterial grafts. The procedure was well tolerated and without any apparent complications. Scarring of the epicardium consistent with an old anteroseptal OK was incidentally noted. Easily from CPB with preserved BiV systolic fx. Extubated in the OR and transferred to the ICU in hemodynamically stable condition without need for vasoactive support, backup pacing, blood or blood products. Postop course notable for persistent urinary retention with elevated postvoid residuals requiring replacement of an indwelling catheter. Urology consulted and timing of a voiding trial as well as risks and benefits of clean intermittent self-catheterization presented. A voiding trial prior to discharge elected and seemingly successful by post void bladder scan. Follow up with his established urologist planned and prescriptions for red rubber catheters, lidocaine jelly, and an antispasmodic provided in the event of interim voiding difficulties. DISCHARGE CLINICAL INFORMATION: Sternum grossly stable. Sternotomy and LLE venotomy CDI, sutured, +Dermabond. HR 70s-90s . SBP 110s . SpO2 89-94% RA . Wt 0.9kg above admission at 96 kilos. WBC 6.75, Hgb 10.5 , HCT 30.6 , Plt 98, Na 132 , K 4.1 , Cr 0.8 DISCHARGE MEDICATIONS: As on admission with the following adjustments: Discontinue Bactrim. Hold Norvasc. Hold Viagra. NEW prescriptions: 1. Metoprolol tartrate 25 mg BID. 2. Percocet 5/325, 1/2 to 2 tabs q 6-8hrs prn incisional discomfort. 3. Hyoscyamine sulfate 0.125 mg q6h prn bladder spasms. 4. Uroject lidocaine 2% jelly 10-20 ml prn self catheterization. 5. 1 box 16 Fr red rubber kelly catheters. FOLLOW UP APPOINTMENTS: 1. CV surgery: with Dr Lieberman at [facility] on 05/22 at 9:45am . 2. Cardiology: with Dr Mosqueda at [facility] within 4-6 weeks. Appointment to be established during surgical visit. 3. Urology: with Dr Carvalho at [facility] within 3-5 days or as directed. FOLLOW UP TESTING: CXR prior to surgical appointment.
== END 2016-05-12 14:15 | disposition home or self-care (01) | DRG 236 ==
LOC: F2W 09:06 → F2N 05-08 12:36 → F2W 05-10 14:00
PROVIDERS: ADMIT Thoracic Surgery (Cardiothoracic Vascular Surgery); ATTEND Thoracic Surgery (Cardiothoracic Vascular Surgery)
DX: I25.10 Atherosclerotic heart disease of native coronary artery without angina pectoris (principal); R33.9 Retention of urine, unspecified; N40.1 Benign prostatic hyperplasia with lower urinary tract symptoms; G47.33 Obstructive sleep apnea (adult) (pediatric); Z87.891 Personal history of nicotine dependence; Z87.440 Personal history of urinary (tract) infections
CPT/HCPCS: 82947-QW; 97116-GP; 97161-GP; 97165-GO; 97530-GO; 97535-GO; J0153; J0282; J0690; J1170; J1265; J1644; J1815; J1885; J2001; J2150; J2250; J2260; J2370; J2440; J2704; J2720; J2930; J3010; J7060; P9041

== ENCOUNTER → 2016-05-22 | Outpatient (CLI) | payer BC | LOC: FIMAGING 09:20 | PROVIDERS: ATTEND Thoracic Surgery (Cardiothoracic Vascular Surgery) | DX: Z09 Encounter for follow-up examination after completed treatment for conditions other than malignant neoplasm (principal); Z98.890 Other specified postprocedural states; I51.7 Cardiomegaly ==